=== PATIENT | female | born 1945 | race Hispanic/Latino ===

== ENCOUNTER 2017-09-14 11:09 | Day surgery (SDC) | payer MEDICARE, OTHER ==
[~2017-09-14 11:09] MED LIST: IOPIDINE OD ONE
[2017-09-14] MEDS ORDERED: AK-Dilate ONE (12:01)
[2017-09-14] MEDS ORDERED: MYDRIACYL ONE (12:01)
[2017-09-14] MEDS ORDERED: IOPIDINE ONE (12:02)
[2017-09-14] MEDS ORDERED: IOPIDINE OD ONE ×2 (12:06→12:46)
[2017-09-14] MEDS ORDERED: MYDRIACYL OD ONE (12:06)
[2017-09-14] MEDS ORDERED: AK-Dilate OD ONE (12:06)
[2017-09-14 15:59] VITALS: BP 150/70
== END 2017-09-14 12:54 | disposition home or self-care (01) ==
LOC: OR 11:09
PROVIDERS: ATTEND Ophthalmology
DX: H26.491 Other secondary cataract, right eye (principal); J45.909 Unspecified asthma, uncomplicated; G47.30 Sleep apnea, unspecified; I10 Essential (primary) hypertension; E78.00 Pure hypercholesterolemia, unspecified; I48.91 Unspecified atrial fibrillation; K21.9 Gastro-esophageal reflux disease without esophagitis; E11.9 Type 2 diabetes mellitus without complications; M17.0 Bilateral primary osteoarthritis of knee; Z85.3 Personal history of malignant neoplasm of breast; Z79.899 Other long term (current) drug therapy; Z98.890 Other specified postprocedural states; Z92.3 Personal history of irradiation
CPT/HCPCS: 82962

== ENCOUNTER 2017-09-15 08:45 | Outpatient (CLI) | payer MEDICARE, OTHER ==
--- NOTE | 2017-09-16 08:59 | Mammography Report ---
BILATERAL DIGITAL SCREENING MAMMOGRAM WITH CAD: 09/15/17 08:45:00 CLINICAL: Routine screening.Breast cancer survivor status post right partial mastectomy and radiation therapy in 2001. COMPARISON:09/12/16 FINDINGS: The left breast is heterogeneously dense, which may obscure small masses. The right breast is mostly fatty with a stable central scar and benign calcifications.New right asymmetries require additional imaging. No mass, architectural distortion or suspicious calcifications of the left breast. IMPRESSION: Right asymmetries requiring further workup. BI-RADS CATEGORY: 0 -- Additional Imaging Evaluation Required RECOMMENDATION: Recall for right spot magnification views and right breast ultrasound if needed. ACR BI-RADS MAMMOGRAPHIC CODES: 0 = Needs additional imaging evaluation; 1 = Negative; 2 = Benign; 3 = Probably benign; 4 = Suspicious; 5 = Malignant; 6 = Known biopsy-proven malignancy COMMENT: 1. Dense breast tissue, i.e., adenosis, fibrocystic changes, etc., may obscure an underlying neoplasm. 2. Approximately 10% of cancers are not detected with mammography. 3. A negative mammography report should not delay biopsy if a clinically suspicious mass is present. COMMENT: Patient follow-up letters are generated via our [employer] application.
== END 2017-09-15 08:46 | disposition home or self-care (01) ==
LOC: SPVWC 08:45
PROVIDERS: ATTEND Nurse Practitioner
DX: Z12.31 Encounter for screening mammogram for malignant neoplasm of breast (principal); Z90.11 Acquired absence of right breast and nipple
CPT/HCPCS: 77067; G0202

== ENCOUNTER 2017-10-28 08:55 | Outpatient (CLI) | payer MEDICARE, OTHER ==
--- NOTE | 2017-10-28 09:43 | Mammography Report ---
Right mammogram: Patient his right breast cancer survivor recalled for asymmetry identified on recent screening exam. The additional spot cc and lateral compression images fail to confirm new asymmetry or change compared to prior exam in September 2016. Impression: Stable right breast pattern. Recommendation: Annual mammogram followup. BI-RADS CATEGORY: 2 = Benign ACR BI-RADS MAMMOGRAPHIC CODES: 0 = Needs additional imaging evaluation; 1 = Negative; 2 = Benign; 3 = Probably benign; 4 = Suspicious; 5 = Malignant; 6 = Known biopsy-proven malignancy COMMENT: 1. Dense breast tissue, i.e., adenosis, fibrocystic changes, etc., may obscure an underlying neoplasm. 2. Approximately 10% of cancers are not detected with mammography. 3. A negative mammography report should not delay biopsy if a clinically suspicious mass is present.
== END 2017-10-28 08:56 | disposition home or self-care (01) ==
LOC: SPVWC 08:55
PROVIDERS: ATTEND Nurse Practitioner
DX: R92.8 Other abnormal and inconclusive findings on diagnostic imaging of breast (principal); Z85.3 Personal history of malignant neoplasm of breast

== ENCOUNTER 2019-09-21 10:20 | Outpatient (CLI) | payer MEDICARE ==
--- NOTE | 2019-09-21 16:20 | Mammography Report ---
DIGITAL SCREENING MAMMOGRAM WITH CAD, 09/21/2019 INDICATION: Routine screening mammography. Breast cancer survivor status post right partial mastectom y and radiation therapy in 2002. TECHNIQUE: Digital bilateral 2D mammography was obtained in the craniocaudal and mediolateral obliq ue projections. This examination was interpreted with the benefit of Computer-Aided Detection analysi s. COMPARISON: 09/16/2018 FINDINGS: Breast Density: The breasts are heterogeneously dense, which may obscure small masses. There is no evidence of dominant mass, suspicious calcifications or architectural distortion in eithe r breast. The right breast is smaller than the left with stable upper postsurgical scar and dystrophi c benign calcifications. Scattered benign calcifications of the left breast. IMPRESSION: No mammographic evidence of malignancy. Follow up recommendation: Routine yearly BI-RADS Category 2: Benign. A "normal" or negative report should not discourage follow up or biopsy of a clinically significant f inding. A written summary of these findings will be mailed to the patient. The patient will be entered into a mammography reporting system which will generate a reminder letter for the patient's next appointmen t at the appropriate interval. The [employer] recommends yearly mammograms starting at age 40 and continuing as l kary as a woman is in good health. Breast MRI is recommended for women with an approximate 20-25% or greater lifetime risk of breast cancer, including women with a strong family history of breast or ova quan cancer or who have been treated for Hodgkin's disease. Signer Name: Trey James MD Signed: 09/21/2019 4:16 PM Workstation Name: [id number]
== END 2019-09-21 10:21 | disposition home or self-care (01) ==
LOC: SPVWC 10:20
PROVIDERS: ATTEND Internal Medicine
DX: Z12.31 Encounter for screening mammogram for malignant neoplasm of breast (principal)
CPT/HCPCS: 77067

== ENCOUNTER 2020-09-24 10:41 | Outpatient (CLI) | payer MEDICARE ==
--- NOTE | 2020-09-24 15:30 | Mammography Report ---
DIGITAL SCREENING MAMMOGRAM WITH CAD, 09/24/2020 INDICATION: Routine screening mammography. TECHNIQUE: Digital bilateral 2D mammography was obtained in the craniocaudal and mediolateral obliq ue projections. This examination was interpreted with the benefit of Computer-Aided Detection analysi s. COMPARISON: 09/21/2019. FINDINGS: Breast Density: The breasts are heterogeneously dense, which may obscure small masses. There is no evidence of dominant mass, suspicious calcifications or architectural distortion in eithe r breast. Postbiopsy change right breast. IMPRESSION: Follow up recommendation: Routine yearly BI-RADS Category 2: Benign. A "normal" or negative report should not discourage follow up or biopsy of a clinically significant f inding. A written summary of these findings will be mailed to the patient. The patient will be entered into a mammography reporting system which will generate a reminder letter for the patient's next appointmen t at the appropriate interval. The [employer] recommends yearly mammograms starting at age 40 and continuing as l kary as a woman is in good health. Breast MRI is recommended for women with an approximate 20-25% or greater lifetime risk of breast cancer, including women with a strong family history of breast or ova quan cancer or who have been treated for Hodgkin's disease. Signer Name: Brad Adams MD Signed: 09/24/2020 3:25 PM Workstation Name: [id number]
== END 2020-09-24 10:42 | disposition home or self-care (01) ==
LOC: SPVWC 10:41
PROVIDERS: ATTEND Internal Medicine
DX: Z12.31 Encounter for screening mammogram for malignant neoplasm of breast (principal)
CPT/HCPCS: 77067

== ENCOUNTER 2021-12-25 10:04 | Outpatient (CLI) | payer MEDICARE ==
--- NOTE | 2021-12-26 14:57 | Mammography Report ---
DIGITAL SCREENING MAMMOGRAM WITH CAD, 12/25/2021 CLINICAL INFORMATION / INDICATION: Routine screening mammography. TECHNIQUE: Digital bilateral 2D mammography was obtained in the craniocaudal and mediolateral obliqu e projections. This examination was interpreted with the benefit of Computer-Aided Detection analysis . COMPARISON: 09/24/2020, 09/21/2019 FINDINGS: Breast Density: The breasts are heterogeneously dense, which may obscure small masses. No dominant mass, suspicious calcifications, or architectural distortion in either breast. Stable postoperative changes are seen in the right breast with similar bilateral benign-appearing lawanda cifications. IMPRESSION: No mammographic evidence of malignancy. Follow up recommendation: Routine yearly BI-RADS Category 2: BENIGN. A "normal" or negative report should not discourage follow up or biopsy of a clinically significant f inding. A written summary of these findings will be mailed to the patient. The patient will be entered into a mammography reporting system which will generate a reminder letter for the patient's next appointmen t at the appropriate interval. The [employer] recommends yearly mammograms starting at age 40 and continuing as l kary as a woman is in good health. Breast MRI is recommended for women with an approximate 20-25% or greater lifetime risk of breast cancer, including women with a strong family history of breast or ova quan cancer or who have been treated for Hodgkin's disease. Signer Name: Boris Keane MD Signed: 12/26/2021 2:52 PM Workstation Name: [id number]
== END 2021-12-25 10:05 | disposition home or self-care (01) ==
LOC: SPVWC 10:04
PROVIDERS: ATTEND Internal Medicine
DX: Z12.31 Encounter for screening mammogram for malignant neoplasm of breast (principal); N64.89 Other specified disorders of breast
CPT/HCPCS: 77067